=== PATIENT | female | born 1975 | race Two or more races ===

== ENCOUNTER 2018-02-03 16:58 | Emergency (ER) | payer OTHER ==
[~2018-02-03] VITALS: Ht 172.7 cm; Wt 98.8 kg
[2018-02-03 17:02] VITALS: BP 160/96
== END 2018-02-03 17:35 | disposition home or self-care (01) ==
LOC: ED 17:15
DX: N75.1 Abscess of Bartholin's gland (principal); I10 Essential (primary) hypertension; Z85.3 Personal history of malignant neoplasm of breast
CPT/HCPCS: 99281